=== PATIENT | female | born 1940 | race Caucasian/White ===

== ENCOUNTER 2020-06-22 16:04 | Inpatient (IN) | payer OTHER ==
[~2020-06-22] VITALS: Ht 160 cm; Wt 38.1 kg
[2020-06-22 16:10] VITALS: BP 215/90
[2020-06-22] MEDS ORDERED: PREMARIN0.9 M1 PO (16:18)
[2020-06-22] MEDS ORDERED: PULMICORT0.5 MG/22 INH (16:18)
[2020-06-22] MEDS ORDERED: TELMISARTAN80 MG PO (16:18)
[2020-06-22] MEDS ORDERED: CARVEDILOL25 MG PO (16:18)
[2020-06-22] MEDS ORDERED: CLOBETASOL 0.0560 G1 (16:19)
[2020-06-22] MEDS ORDERED: VIRTUSSIN AC L118 ML PO (16:19)
[2020-06-22] MEDS ORDERED: VENTOLIN HFA 1818 GM INH (16:19)
[2020-06-22] MEDS ORDERED: TRAMADOL 50 MG50 MG PO (16:19)
[2020-06-22] MEDS ORDERED: FUROSEMIDE 40 M40 MG PO (16:20)
[2020-06-22] MEDS ORDERED: CHORTHALIDONE (16:20)
[2020-06-22 17:23] LABS: ABSOLUTE EOSINOPHILS 0.2 thou/uL (0.0-0.7); ABSOLUTE LYMPHOCYTES 1.4 thou/uL (0.8-5.3); ABSOLUTE MONOCYTES 0.6 thou/uL (0.0-1.2); ABSOLUTE NEUTROPHILS 5.2 thou/uL (1.6-8.1); BASOPHILS 0.6 %; EOSINOPHILS 3.2 %; HEMATOCRIT 36.8 % (37.0-47.0); HEMOGLOBIN 12.3 gm/dL (12.0-15.0); LYMPHOCYTES 19.2 %; MCH 31.6 pg (26.0-34.0); MCHC 33.5 g/dL (28.0-37.0); MCV 94.2 fL (80.0-100.0); MONOCYTES 8.5 %; NUCLEATED RBCS 0 /100WBC; PLATELET COUNT* 127 thou/uL (150-400); POLYS 68.5 %; RBC 3.91 mil/uL (4.20-5.00); RDW-CV 13.4 % (10.5-14.5); WBC 7.5 thou/uL (4.0-11.0)
[2020-06-22 17:31] LABS: APTT 24.2 Seconds (25.0-31.3); CALCIUM 8.6 mg/dL (8.5-10.1); CREATININE 0.9 mg/dL (0.6-1.3); POTASSIUM 3.3 mmol/L (3.5-5.1); PROTIME 10.7 Seconds (9.20-11.50)
[2020-06-22 17:41] LABS: ALBUMIN 3.1 g/dL (3.4-5.0); TOTAL BILIRUBIN 0.8 mg/dL (<0.1-1.0); TOTAL PROTEIN 7.3 g/dL (6.4-8.2)
[2020-06-22 21:45] VITALS: BP 148/82
[2020-06-22 22:00] VITALS: BP 204/84
[2020-06-23 01:00] VITALS: BP 157/77
[2020-06-23 04:00] VITALS: BP 160/70
[2020-06-23 08:00] VITALS: BP 181/70
[2020-06-23 12:00] VITALS: BP 129/57
--- NOTE | 2020-06-23 13:03 | CON ---
[address] [address] CONSULTATION Name: APURVANICHOLE M Room: [address] IN M.R.#: [id number] Admission: 06/22/20 Attend Phys: Monika Burkett Discharge: Date of : 38 Report #: [id number] THIS REPORT FOR: //name// cc: Man Navarro Mohammad K. DO ~ THIS REPORT FOR: //name// CC: Man Hall DATE OF SERVICE: 06/23/2020 CARDIOLOGY CONSULTATION HISTORY OF PRESENT ILLNESS: The patient is an 79-year-old female who was admitted with increasing shortness of breath. She also noted mild chest tightness, which persists. It has been there for the last several days off and on. She denies history of antecedent myocardial infarction. There is a history of chronic diastolic heart failure, rheumatic heart disease with valvular dysfunction, specific data with data unavailable to me at this time. She also has significant antecedent hypertension and is treated with antihypertensive therapy, in the past with a combination of metoprolol, lisinopril. Since admission, the patient has received IV Lasix and subsequently oral Lasix and was placed on angiotensin receptor randy and carvedilol. She is breathing somewhat better and has noted a significant urine output since admission. PAST MEDICAL HISTORY: Remarkable for hypertension, mitral regurgitation. FAMILY HISTORY: Remarkable for lung disease in her sister. SOCIAL HISTORY: She is a nonsmoker, but was exposed to it in the household. REVIEW OF SYSTEMS: Remarkable for the following: PULMONARY: She notes chronic dyspnea, which has been worse of late. She did not have any problem with a recent pneumonitis. CARDIAC: There is a history of valvular heart [place] [address] CONSULTATION Name: NICHOLE MIXON Room: [address]#: [id number] Admission: 06/22/20 Attend Phys: Monika Burkett Discharge: Date of : 38 Report #: [id number] Remainder unremarkable. PHYSICAL EXAMINATION: GENERAL: Reveals a frail-appearing elderly female in no acute distress. VITAL SIGNS: Blood pressure is 160/70, pulse rate is 74, respirations are 18 per minute. NECK: Jugular venous pressure is normal. CHEST: Reveals left basilar crackles. CARDIAC: Reveals normal first and second heart sounds with a soft systolic ejection murmur. ABDOMEN: Soft. EXTREMITIES: Without edema with intact pulses. EKG reveals sinus rhythm, probable anteroseptal scar and nonspecific ST-T alterations. ADDITIONAL LABORATORY DATA: Reveals hemoglobin of 12.3, white blood cell count 7500 with 127,000 platelets. Chemistries remarkable for sodium 139; potassium 3.3, which has been repleted; BUN 20; creatinine 0.9. NT-BNP 3792. Protime 10.7, PTT 24.2. Troponin I less than 0.06. Chest x-ray demonstrates cardiomegaly with basilar infiltrates and/or atelectasis. IMPRESSION: 1. Congestive heart failure. 2. Question antecedent anteroseptal myocardial infarction as suggested by electrocardiogram. 3. Obstructive airways disease. 4. Hypertension. RECOMMENDATIONS: 1. Agree with diuretic, angiotensin receptor blockade, and beta blockade. 2. We will plan an echocardiogram regarding global and segmental LV function as well as diastolic function and valvular function in the context of known rheumatic heart disease. We will follow with you. Thank you for allowing us to see the patient in cardiovascular assessment. Critical care time is 32 minutes from 11:15 to 11:47 on 06/23/2020. <ELECTRONICALLY SIGNED> By: Malvin Dennis MD, FACC 06/23/20 1303 1147 1221Malvin Dennis MD, FACC /nt
[2020-06-23 13:39] LABS: CALCIUM 8.3 mg/dL (8.5-10.1); CREATININE 0.9 mg/dL (0.6-1.3); MAGNESIUM 1.6 mg/dL (1.8-2.4)
[2020-06-23 13:41] LABS: POTASSIUM 2.7 mmol/L (3.5-5.1)
[2020-06-23 16:00] VITALS: BP 111/52
[2020-06-23 20:52] LABS: MAGNESIUM 1.7 mg/dL (1.8-2.4)
[2020-06-23 20:53] LABS: POTASSIUM 3.7 mmol/L (3.5-5.1)
[2020-06-23 21:00] VITALS: BP 135/57
[2020-06-24] VITALS: BP 183/72
[2020-06-24 04:00] VITALS: BP 110/56
[2020-06-24 04:12] LABS: HEMATOCRIT 33.5 % (37.0-47.0); HEMOGLOBIN 11.3 gm/dL (12.0-15.0); MCH 31.2 pg (26.0-34.0); MCHC 33.7 g/dL (28.0-37.0); MCV 92.8 fL (80.0-100.0); MPV 9.9 fl. (7.2-11.1); RBC 3.61 mil/uL (4.20-5.00); RDW-CV 13.2 % (10.5-14.5); WBC 5.9 thou/uL (4.0-11.0)
[2020-06-24 04:32] LABS: ALBUMIN 2.5 g/dL (3.4-5.0); CALCIUM 8.3 mg/dL (8.5-10.1); CREATININE 1.2 mg/dL (0.6-1.3); POTASSIUM 3.3 mmol/L (3.5-5.1); TOTAL BILIRUBIN 0.6 mg/dL (<0.1-1.0); TOTAL PROTEIN 6.1 g/dL (6.4-8.2)
[2020-06-24 07:45] VITALS: BP 153/68
--- NOTE | 2020-06-24 10:24 | EKG ---
[place] [address] ELECTROCARDIOGRAM REPORT Name: APURVANICHOLE Jonathon Room: [address] ADM IN .R.#: [id number] Admission: 06/22/20 Attend Phys: Adama Hall Discharge: Date of : 38 Date of Service: 06/22/20 1715 Report #: [id number] THIS REPORT FOR: //name// [facility] ED Test Date: 2020-06-22 Test Time: 17:15:09 Pat Name: NICHOLE MIXON Department: Room: [facility] Gender: F Engineering Laboratory Technician: : 1940 Requested By: Eddie Rosenberg Order Number: [id number] MD: Pepito Curiel Measurements Intervals [place] Rate: 81 P: 74 ME: 151 QRS: 75 QRSD: 98 T: 61 QT: 390 QTc: 453 Interpretive Statements Sinus rhythm Probable left ventricular hypertrophy Compared to ECG 09/20/2007 21:09:45 No significant changes Electronically Signed On 06-24-2020 10:24:19 CDT by Pepito Curiel [email or web address] <ELECTRONICALLY SIGNED> By: Pepito Curiel MD, [facility] 06/24/20 1024 1715 1715 Pepito Curiel MD, [facility] /EPI
--- NOTE | 2020-06-24 10:31 | EKG ---
[place] [address] ELECTROCARDIOGRAM REPORT Name: TAHIRA MIXONLIS Jonathon Room: [address] ADM IN .R.#: [id number] Admission: 06/22/20 Attend Phys: Adama Hall Discharge: Date of : 38 Date of Service: 06/23/20 1125 Report #: [id number] THIS REPORT FOR: //name// [facility] Test Date: 2020-06-23 Test Time: 11:25:21 Pat Name: NICHOLE MIXON Department: Room: [address] Gender: F Geophysical Support Specialist: GERSON : 1940 Requested By: Adama Hall Order Number: [id number] MD: Pepito Curiel Measurements Intervals [place] Rate: 72 P: 94 [place]: 152 QRS: 67 QRSD: 90 T: 56 QT: 426 QTc: 467 Interpretive Statements Sinus rhythm Probable left atrial enlargement Minimal ST depression, lateral leads Electronically Signed On 06-24-2020 10:31:23 CDT by Pepito Curiel [email or web address] <ELECTRONICALLY SIGNED> By: Pepito Curiel MD, [facility] 06/24/20 1031 1125 24 Pepito Curiel MD, FAC /EPI
[2020-06-24 12:00] VITALS: BP 127/55
[2020-06-24 16:30] VITALS: BP 143/59
[2020-06-24 20:00] VITALS: BP 178/79
[2020-06-25 00:43] VITALS: BP 180/79
[2020-06-25 04:17] VITALS: BP 156/80
[2020-06-25 05:29] LABS: HEMATOCRIT 35.3 % (37.0-47.0); HEMOGLOBIN 11.8 gm/dL (12.0-15.0); MCH 31.2 pg (26.0-34.0); MCHC 33.5 g/dL (28.0-37.0); MCV 93.3 fL (80.0-100.0); MPV 10.3 fl. (7.2-11.1); RBC 3.78 mil/uL (4.20-5.00); WBC 5.9 thou/uL (4.0-11.0)
[2020-06-25 05:53] LABS: CALCIUM 8.5 mg/dL (8.5-10.1); CREATININE 1.2 mg/dL (0.6-1.3)
[2020-06-25 08:00] VITALS: BP 167/77
[2020-06-25] MEDS ORDERED: COREG3.125 MG PO (11:47)
[2020-06-25 12:00] VITALS: BP 138/71
--- NOTE | 2020-06-25 13:10 | 2DMMODE ---
[place] [address] 2 D/M-MODE ECHOCARDIOGRAM Name: MIXONTAHIRANICHOLE M Room: [address] IN .R.#: [id number] Admission: 06/22/20 Attend Phys: Adama Hall Discharge: Date of : 38 Date of Service: 06/25/20 1310 Report #: [id number] THIS REPORT FOR: cc: Man Navarro,Malvin Galvez MD [facility] ~ APPROVED REPORT Study performed: 06/25/2020 09:36:46 EXAM: Comprehensive 2D, Doppler, and color-flow Echocardiogram Patient Location: Bedside BSA: 1.35 HR: 61 bpm BP: 167/77 mmHg Other Information Study Quality: Good Indications Chest Pain 2D Dimensions IVSd: 21.48 (7-11mm) LVOT Diam: 17.65 (18-24mm) LVDd: 35.72 mm PWd: 10.11 (7-11mm) Ascending Ao: 32.21 (22-36mm) LVDs: 27.12 (25-40mm) Aortic Root: 26.78 mm Volumes Left Atrial Volume (Systole) LA ESV Index: 33.20 mL/m2 Aortic Valve AoV Peak Chip.: 0.80 m/s AO Peak Gr.: 2.54 mmHg LVOT Max P.19 mmHg AO Mean Gr.: 1.33 mmHg LVOT Mean P.95 mmHg LVOT Max V: 0.74 m/s AO V2 VTI: 18.39 cm LVOT Mean V: 0.44 m/s TAURUS (VTI): 2.29 cm2 LVOT V1 VTI: 17.24 cm AI [place]: 2.27 m/s2 AI PHT: 632.50 [place] [address] 2 D/M-MODE ECHOCARDIOGRAM Name: NICHOLE MIXON Room: [address] IN .R.#: [id number] Admission: 06/22/20 Attend Phys: Adama Hall Discharge: Date of : 38 Date of Service: 06/25/20 1310 Report #: [id number] Mitral Valve E/A Ratio: 1.62 MV Decel. Time: 196.83 ms MV E Max Chip.: 0.86 m/s MV PHT: 57.08 ms MVA (PHT): 3.85 cm2 TDI E/Lateral E': 14.33 E/Medial E': 17.20 Medial E' Chip.: 0.05 m/s Lateral E' Chip.: 0.06 m/s Pulmonary Valve PV Peak Chip.: 0.80 m/s PV Peak Gr.: 2.57 mmHg Tricuspid Valve RAP Estimate: 5.00 mmHg TR Peak Gr.: 32.16 mmHg RVSP: 37.16 mmHg PA Pressure: 37.16 mmHg Left Ventricle The left ventricle is normal size. There is normal LV segmental wall motion. Mild to moderate concentric left ventricular hypertrophy. Left ventricular systolic function is normal. The left ventricular ejection fraction is within the normal range. LVEF is 55-60%. Right Ventricle The right ventricle is normal size. The right ventricular systolic function is normal. Atria Left atrium is mildly dilated. The right atrium size is normal. Aortic Valve The Aortic valve is sclerotic. Mild to moderate aortic regurgitation. There is no aortic valvular stenosis. Mitral Valve The mitral valve is normal in structure. Mild mitral regurgitation. No evidence of mitral valve stenosis. Tricuspid Valve The tricuspid valve is normal in structure. Trace [place] [address] 2 D/M-MODE ECHOCARDIOGRAM Name: NICHOLE MIXON Room: [address]#: [id number] Admission: 06/22/20 Attend Phys: Adama Hall Discharge: Date of : 38 Date of Service: 06/25/20 1310 Report #: [id number] Pulmonic Valve The pulmonary valve is normal in structure. Trace pulmonic regurgitation. Great Vessels The aortic root is normal in size. IVC is normal in size and collapses >50% with inspiration. Pericardium There is no pericardial effusion. <Conclusion> The left ventricle is normal size. Mild to moderate concentric left ventricular hypertrophy. Left ventricular systolic function is normal. The left ventricular ejection fraction is within the normal range. LVEF is 55-60%. The right ventricle is normal size. Left atrium is mildly dilated. The right atrium size is normal. The Aortic valve is sclerotic. Mild to moderate aortic regurgitation. There is no aortic valvular stenosis. The mitral valve is normal in structure. Mild mitral regurgitation The tricuspid valve is normal in structure. IVC is normal in size and collapses >50% with inspiration. There is no pericardial effusion. There is normal LV segmental wall motion. <ELECTRONICALLY SIGNED> By: Malvin Dennis MD, FACC 06/25/201309 09 09 Malvin Dennis MD, FACC /INF
[2020-06-25 16:10] VITALS: BP 138/71
--- NOTE | 2020-06-25 18:21 | EKG ---
[place] [address] ELECTROCARDIOGRAM REPORT Name: NICHOLE MIXON Room: [address] IN ..#: [id number] Admission: 06/22/20 Attend Phys: Adama Hall Discharge: 06/25/20 Date of : 38 Date of Service: 06/23/20 1131 Report #: [id number] THIS REPORT FOR: //name// [facility] Test Date: 2020-06-23 Test Time: 11:31:40 Pat Name: NICHOLE MIXON Department: Room: [address] Gender: F Red Cap: GERSON : 1940 Requested By: Adama Hall Order Number: [id number] Reading MD: Benjamin Brasher Measurements Intervals [place] Rate: 81 P: 68 [place]: 170 QRS: -5 QRSD: 83 T: 44 QT: 433 QTc: 503 Interpretive Statements Sinus rhythm Probable left atrial enlargement Anterior infarct, old, possible Prolonged QT interval Compared to ECG 06/23/2020 11:25:21 Myocardial infarct finding now present Prolonged QT interval now present ST (T wave) deviation no longer present Electronically Signed On 06-25-2020 18:21:46 CDT by Benjamin Brasher [email or web address] <ELECTRONICALLY SIGNED> By: Benjamin Brasher MD, FACC 06/25/20 1821 30 30 Benjamin Brasher MD, FACC /EPI
== END 2020-06-25 17:15 | disposition home or self-care (01) | DRG 177 ==
LOC: M.ERS 16:04 → M.TBA-ER 17:46 → M.2W 17:46
PROVIDERS: Emergency Medicine Emergency Medical Services; Internal Medicine Cardiovascular Disease; ADMIT Internal Medicine; ATTEND Internal Medicine
DX: J69.0 Pneumonitis due to inhalation of food and vomit (principal); J96.01 Acute respiratory failure with hypoxia; I50.33 Acute on chronic diastolic (congestive) heart failure; I11.0 Hypertensive heart disease with heart failure; G89.29 Other chronic pain; J44.9 Chronic obstructive pulmonary disease, unspecified; Z20.828 Contact with and (suspected) exposure to other viral communicable diseases; Z79.899 Other long term (current) drug therapy; Z88.8 Allergy status to other drugs, medicaments and biological substances